=== PATIENT | female | born 1985 | race Two or more races ===

== ENCOUNTER 2025-05-01 15:48 | Emergency (ER) | payer OTHER ==
[~2025-05-01] VITALS: Ht 167.6 cm; Wt 63.5 kg
[2025-05-01] MEDS ORDERED: CETIRIZINE HCL 5 MG/5 ML ML PO ONE (18:15)
[2025-05-01] MEDS ORDERED: BENZONATATE 100 MG CAPSULE PO ONE (18:15)
[2025-05-01] MEDS ORDERED: LACTOBACILLUS ACIDOPHILUS 1 CAP CAP PO ONE ×2 (18:15→19:21)
[2025-05-01] MEDS ORDERED: CETIRIZINE HCL 5MG/5ML BLIST.PACK PO ONE (19:21)
[2025-05-01 19:38] LABS: BASO % 0.5 % (0.1-1.2); EOS # 0.19 (0.04-0.54); EOS % 1.8 % (0.7-7.0); LYMPH # 1.49 (1.18-3.74); LYMPH % 14.1 % (19.3-53.1); MEAN PLATELET VOLUME 9.30 fl (9.4-12.4); MONO # 0.78 (0.24-0.82); MONO % 7.4 % (4.7-12.5); NEUT # 8.02 (1.56-6.13); NEUT % 75.8 % (34.0-71.1); RED CELL DISTRIBUTION WIDTH 11.2 % (11.6-14.4)
[2025-05-01 20:26] LABS: COVID-19 AG NEGATIVE (NEGATIVE)
[2025-05-01] MEDS ORDERED: IPRATROPIU0.2 MG/1 M IH (21:37)
[2025-05-01] MEDS ORDERED: XOPENEX CO1.25 MG/0. IH (21:37)
[2025-05-01] MEDS ORDERED: ZITHROMAX500 MG PO (21:37)
[2025-05-01] MEDS ORDERED: BENZONATATE200 M1 PO (21:37)
== END 2025-05-01 22:35 | disposition home or self-care (01) ==
LOC: ER 15:48
PROVIDERS: General Practice
DX: J06.9 Acute upper respiratory infection, unspecified (principal); R05.8 Other specified cough; J45.909 Unspecified asthma, uncomplicated; D64.89 Other specified anemias; Z87.09 Personal history of other diseases of the respiratory system; Z20.822 Contact with and (suspected) exposure to COVID-19